=== PATIENT | male | born 1955 | race Caucasian/White ===

== ENCOUNTER 2018-12-19 09:54 | Inpatient (IN) | payer MEDICAID ==
[2018-12-19] MEDS ORDERED: Magnesium Sulfate 2 GM IV* 2 GM/50 ML BAG IVPB ONE (10:05)
[2018-12-19] MEDS ORDERED: Acetaminophen TAB* 325 MG PO ONE (10:05)
[2018-12-19] MEDS ORDERED: Albuterol/Ipratropium NEB.SOL* Albuterol 2.5 MG/Ipratropium 0.5 MG 3 ML INH ONE (10:06)
[2018-12-19] MEDS ORDERED: Cefepime(*) 2 GM in NS 0.9% 50 ML* 50 ML IVPB ONE (10:10)
[2018-12-19] MEDS ORDERED: NS 0.9% 1000 ML** 1,000 ML IV.FLUID IV ONE (10:10)
[2018-12-19] MEDS ORDERED: Levofloxacin 750 MG IVPREMIX(* 750 MG/150 ML BAG IVPB ONE (10:10)
--- NOTE | 2018-12-19 10:16 | ED ---
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 He was diagnosed through the [facility] and was told to have follow-up scans at [facility] and also to see a oncologist at [facility]. He states he does not want to drive all the way to [facility] and is nearly "on comfort care." He does state however he would like to have almost filled out at this time and does not want to be placed on comfort care quite yet. He does understand the severity of his disease. Over the past week to 2 weeks, he states he's been feeling more weak than normal, confuse, having trouble with word finding. Endorsing shortness of breath. Denies CP. Denies abdominal pain, nausea, vomiting, diarrhea, constipation. Continues to eat and drink okay. He denies any subjective fevers, but endorses sweats and chills and a minimally. Currently endorsing chills. - History of Current Complaint Chief Complaint: EDShortnessOfBreath Time Seen by Provider: 12/19/18 10:02 Hx Obtained From: Patient Onset/Duration: Sudden Onset Timing: Constant Current Severity: Moderate Associated Signs & Symptoms: Cough (Nonproductive) - Risk Factors Pulmonary Embolism: Malignancy, Smoking Pseudomonas: Negative Tuberculosis: Immune Deficiency, Smoking - Allergy/Home Medications Allergies/Adverse Reactions: Allergies Allergy/AdvReac Type Severity Reaction Status Date / Time No Known Allergies Allergy Verified 12/19/18 10:12 Home Medications: Home Medications Dexamethasone [Decadron] 4 mg PO BID 12/19/18 [History Confirmed 12/19/18] Furosemide [Lasix] 20 mg PO DAILY 12/19/18 [History Confirmed 12/19/18] levETIRAcetam [Keppra] 500 mg PO BID 12/19/18 [History Confirmed 12/19/18] PMH/Surg Hx/FS Hx/Imm Hx Previously Healthy: Yes - Immunization History Hx Pertussis Vaccination: No Immunizations Up to Date: Yes Infectious Disease History: No Infectious Disease History: Denies: Traveled Outside the [place] in Last 30 Days - Social History Occupation: Unemployed Lives: With Family Alcohol Use: None Hx Substance Use: No Substance Use Type: Reports: None Hx Tobacco Use: Yes Review of Systems Positive: Chills, Fatigue. Negative: Fever, Skin Diaphoresis Negative: Dental Pain Negative: Palpitations, Chest Pain Positive: Shortness Of Breath, Cough Negative: Abdominal Pain, Vomiting, Diarrhea, Nausea Positive: hematuria Negative: Arthralgia, Myalgia Skin: Negative Positive: Weakness Positive: Other - patient upset All Other Systems Reviewed And Are Negative: Yes Physical Exam Triage Information Reviewed: Yes Vital Signs On Initial Exam: Initial Vitals Temp Pulse Resp BP Pulse Ox 101.3 F 106 22 115/92 94 12/19/18 10:01 12/19/18 10:01 12/19/18 10:01 12/19/18 10:01 12/19/18 10:01 Vital Signs Reviewed: Yes Appearance: Positive: Ill-Appearing Skin: Positive: Skin Color Reflects Adequate Perfusion Head/Face: Positive: Normal Head/Face Inspection Eyes: Positive: EOMI, Conjunctiva Clear Neck: Positive: No Lymphadenopathy Respiratory/Lung Sounds: Positive: Clear to Auscultation, Breath Sounds Present Cardiovascular: Positive: RRR, Pulses are Symmetrical in both Upper and Lower Extremities Musculoskeletal: Positive: Strength/ROM Intact Neurological: Positive: Speech Normal Psychiatric: Positive: Affect/Mood Appropriate Diagnostics - Vital Signs Vital Signs Temp Pulse Resp BP Pulse Ox 12/19/18 10:01 101.3 F 106 22 115/92 94 - Laboratory Result Diagrams: 12/19/18 10:43 12/19/18 10:43 Lab Statement: Any lab studies that have been ordered have been reviewed, and results considered in the medical decision making process. Course/Dx - Course Course Of Treatment: During the course of treatment, the patient is evaluated for worsening shortness of breath, fatigue and difficulty with word finding and confusion after being diagnosed with stage IV renal carcinoma and brain carcinoma. Patient states he has metastases and will be on comfort care soon, however he does not want placed on comfort care at this time. Patient is requesting a most to be filled out. He is complaining of shortness of breath and chills. He is endorsing worse hematuria, however this is normal for him over the past several weeks. Labs obtained which show a 19,000 leukocytosis with a left shift. Sodium of 133, potassium 3.7. BUN/creatinine ratio is 34.8. Troponin 0.02. CRP elevated at 208. Chest x-ray shows a nodule in the right mid lung field and right upper lung field for which metastatic disease is not excluded. Left upper lobe and left basilar airspace disease suspicious for pneumonia. Patient was placed on Levaquin and cefepime. He was given 30 ML/KG fluids for septic workup. Temporal 1.3, tachycardia 106, tachypnea At 22, 94% on room air, however he drops intermittently to 89% when sleeping. 115/92. Discussed case with Dr. Reyes who agrees to admit patient at this time. - Diagnoses Differential Diagnosis/HQI/PQRI: Positive: Asthma, Bronchitis, Pneumonia, Other - metastatic disease Provider Diagnoses: Pneumonia - Physician Notifications Discussed Care of Patient With: Deejay Reyes Instructed by Provider To: Admit As Inpatient Admit/Transition Orders Completed By ED Provider: No - Critical Care Time Critical Care Time: 30-74 min Discharge - Sign-Out/Discharge Documenting (check all that apply): Patient Departure Patient Received Moderate/Deep Sedation with Procedure: No - Discharge Plan Condition: Fair Disposition: ADMITTED TO [facility] Referrals: Magdaleno Belle MD [Primary Care Provider] - - Billing Disposition and Condition Condition: FAIR Disposition: Admitted to [facility]
[2018-12-19] MEDS ORDERED: NS 0.9% 50 ML* 50 ML ONE (10:52)
[2018-12-19 10:56] LABS: ABS Basophils 0.1 10^3/ul (0-0.2); ABS Lymphocytes 0.4 10^3/ul (1.0-4.8); ABS Monocytes 0.7 10^3/ul (0-0.8); ABS Neutrophils 18.2 10^3/ul (1.5-7.7); Hematocrit 38 % (42-52); Hemoglobin 13.1 g/dL (14.0-18.0); Mean Corpuscular HGB Conc 35 g/dL (31-36); Mean Corpuscular Hemoglobin 32 pg (27-31); Mean Corpuscular Volume 93 fL (80-94); Mean Platelet Volume 7.4 fL (7.4-10.4); Platelet Count 384 10^3/uL (150-450); Red Blood Count 4.07 10^6 /uL (4.18-5.48); Red Cell Distribution Width 13 % (10.5-15); White Blood Count 19.4 10^3/uL (3.5-10.8)
[2018-12-19] MEDS ORDERED: Cefepime* 2 GM in Dextrose 50mL Q12H (Duplex) IV ONE (11:01)
[2018-12-19 11:12] LABS: Albumin 2.9 g/dL (3.2-5.2); BUN/Creatinine Ratio 34.8 (8-20); C Reactive Protein 208.62 mg/L (<8.01); Calcium 8.6 mg/dL (8.6-10.3); EGFR Non-African American 184.3 (>60); Globulin 2.9 g/dL (2-4); Potassium 3.7 mmol/L (3.5-5.0); Total Bilirubin 0.6 mg/dL (0.2-1.0); Total Protein 5.8 g/dL (6.4-8.9)
[2018-12-19 11:13] LABS: Troponin I 0.02 ng/mL (<0.04)
[2018-12-19] MEDS ORDERED: Azithromycin 500 mg/250 mL NS BAG IVPB ONE (14:00)
[2018-12-19] MEDS: Enoxaparin(*) 40 MG/0.4 ML SYR SUBCUT SCH (17:57)
[2018-12-19] MEDS: NS 0.9% w/ 20 Meq KCL 1000 ML* 1,000 ML IV SCH (17:57)
[2018-12-19] MEDS ORDERED: Azithromycin 500 mg/250 mL NS IVPB ONE (18:00)
--- NOTE | 2018-12-19 19:33 | HP ---
History of Present Illness - History of Present Illness Reason for Visit: fatigue History of Present Illness: Patient is 63 year old man who reports he was in good health until a few months ago. He lives 6 months a year in [place], 6 months near [place]. While in [place], he was diagnosed with metastatic renal cell carcinoma, with lesions in the brain and lungs. He was advised to have staging scans and oncology treatment at the [facility], but he has not completed this other than one MRI. He came to ER today because he woke up with dyspnea. He has been increasingly fatigued for about 2-3 weeks. The patient is a vague historian. He denies history of lung issues, but then endorses emphysema due to tobacco. PCP: Dr. 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 Alcohol: None Drugs: Marijuana Lives: Alone - single, no children Domestic Violence: Negative Review of Systems - Measurements Intake and Output: Intake and Output Last 24 Hours 12/17/18 12/18/18 12/19/18 12/20/18 06:59 06:59 06:59 06:59 Intake Total 1650 Balance 1650 Weight 52.163 kg Intake: IV Fluids 1290 Oral 360 - Review of Systems Constitutional Symptoms: Positive: Weight Loss Dermatology: Positive: Normal HEENT: Positive: Normal Eyes: Positive: Normal Thyroid: Positive: Normal Pulmonary: Positive: Cough, Wheezing, Shortness of Breath, Exercise Intolerance Negative: Hemoptysis, Home Oxygen Cardiology: Positive: Shortness of Breath Negative: Chest Pain Gastroenterology: Positive: Normal Genital - Urinary: Positive: Normal Negative: Hematuria Musculoskeletal: Positive: Joint Pain Endocrinology: Positive: Normal Neurology: Positive: Change in Coordination Negative: Diplopia, Hx of Seizures Psychiatry: Positive: Normal Objective Active Medications: Ambulatory Orders Dexamethasone [Decadron] 4 mg PO BID 12/19/18 Furosemide [Lasix] 20 mg PO DAILY 12/19/18 levETIRAcetam [Keppra] 500 mg PO BID 12/19/18 Vital Signs - 8 hr 12/19/18 12/19/18 12/19/18 12:43 13:00 13:13 Temperature Pulse Rate 106 93 89 Respiratory 25 25 24 Rate Blood Pressure 129/72 134/75 (mmHg) O2 Sat by Pulse 97 96 97 Oximetry 12/19/18 12/19/18 14:27 16:00 Temperature 36.5 C 36.6 C Pulse Rate 87 79 Respiratory 16 24 Rate Blood Pressure 100/65 123/62 (mmHg) O2 Sat by Pulse 95 97 Oximetry Oxygen Devices in Use Now: Nasal Cannula Appearance: alert, no distress Eyes: No Scleral Icterus Ears/Nose/Mouth/Throat: NL Teeth, Lips, Gums, - - thrush present soft palate Respiratory: Symmetrical Chest Expansion and Respiratory Effort, Clear to Percussion, - - wheezing throughout Cardiovascular: NL Sounds; No Murmurs; No JVD, RRR Abdominal: NL Sounds; No Tenderness; No Distention, No Hepatosplenomegaly Lymphatic: No Cervical Adenopathy, No Axillary Adenopathy Extremities: No Edema Skin: No Rash or Ulcers Neurological: Alert and Oriented x 3 Lines/Tubes/Other Access: Clean, Dry and Intact Peripheral IV Nutrition: Taking PO's Result Diagrams: 12/19/18 10:43 12/19/18 10:43 Additional Lab and Data: Laboratory Tests 12/19/18 12/19/18 12/19/18 10:43 10:43 10:43 Glucose 115 H Lactic Acid 0.9 AST 12 L C-Reactive Protein 208.62 H B-Natriuretic Peptide 63 Diagnostic Imaging: CXR: YAIR infiltrate, RT side nodule, other metastatic disease EKG Data: sinus tachycardia, MIO, PVCs Assess/Plan/Problems-Billing Assessment: 63 year old man with metastatic renal cell carcinoma, here with pneumonia - Patient Problems (1) Pneumonia Current Visit: Yes Status: Acute Priority: High Code(s): J18.9 - PNEUMONIA , UNSPECIFIED ORGANISM SNOMED Code(s): 141888648 Comment: -Patient will be admitted to medical service -Pneumonia treated with IV ceftriaxone, azithromycin -Will send urine for StrepPneumo and Legionella Ag -Add supplemental O2 as needed (2) COPD with exacerbation Current Visit: Yes Status: Acute Priority: High Code(s): J44.1 - CHRONIC OBSTRUCTIVE PULMONARY DISEASE W (ACUTE) EXACERBATION SNOMED Code(s): 332056025 Comment: -Main symptomology due to COPD exacerbation, due to pneumonia -Will continue decadron -Duonebs q4h ordered -Discussed connection with tobacco abuse (3) Renal cell carcinoma Current Visit: Yes Status: Acute Priority: High Code(s): C64.9 - MALIGNANT NEOPLASM OF UNSP KIDNEY, EXCEPT RENAL PELVIS SNOMED Code(s): 220570401 Comment: -Will need palliative treatment at [facility] -Patient understands there are no curative treatments to be offered -Dr. Desai contacted, will see patient in AM (4) DVT prophylaxis Current Visit: Yes Status: Acute Priority: Medium Code(s): Z29.9 - ENCOUNTER FOR PROPHYLACTIC MEASURES, UNSPECIFIED SNOMED Code(s): 279446299 Comment: -high risk -Lovenox initiated (5) Thrush, oral Current Visit: Yes Status: Acute Priority: Medium Code(s): B37.0 - CANDIDAL STOMATITIS SNOMED Code(s): 04975151 Comment: -Due to high-dose decadron -Will start nystatin swish/swallow. Status and Disposition: inpatient
[2018-12-19] MEDS: Dexamethasone TAB* 4 MG PO SCH (20:38)
[2018-12-19] MEDS: levETIRAcetam TAB* 500 MG PO SCH (20:38)
[2018-12-19 21:40] LABS: Urine Appearance Cloudy; Urine Color Red
[2018-12-19 21:42] LABS: Urine Bacteria Absent (Absent); Urine Red Blood Cell 3+(>10/hpf) (Absent); Urine White Blood Cell 3+(>20/hpf) (Absent)
[2018-12-19] MEDS: Nystatin SUSPENSION* 100000 UNITS/ML 5 ML UDC PO SCH (21:58)
[2018-12-19] MEDS: cefTRIAXone(*) 1 GM in NS 0.9% 50 ML* 50 ML IVPB SCH (21:59)
[2018-12-20] MEDS: NS 0.9% w/ 20 Meq KCL 1000 ML* 1,000 ML IV SCH ×2 (05:59→15:55)
[2018-12-20 06:52] LABS: Hematocrit 35 % (42-52); Hemoglobin 11.8 g/dL (14.0-18.0); Mean Corpuscular HGB Conc 34 g/dL (31-36); Mean Corpuscular Hemoglobin 31 pg (27-31); Mean Corpuscular Volume 93 fL (80-94); Mean Platelet Volume 7.6 fL (7.4-10.4); Platelet Count 361 10^3/uL (150-450); Red Blood Count 3.77 10^6 /uL (4.18-5.48); Red Cell Distribution Width 14 % (10.5-15); White Blood Count 19.2 10^3/uL (3.5-10.8)
[2018-12-20 07:02] LABS: BUN/Creatinine Ratio 42.5 (8-20); Calcium 8.6 mg/dL (8.6-10.3); EGFR African American 262.1 (>60); EGFR Non-African American 216.6 (>60); Potassium 4.4 mmol/L (3.5-5.0)
[2018-12-20 08:27] LABS: ABS Basophils 0.1 10^3/ul (0-0.2); ABS Lymphocytes 0.4 10^3/ul (1.0-4.8); ABS Monocytes 0.6 10^3/ul (0-0.8); ABS Neutrophils 18.1 10^3/ul (1.5-7.7); Lymphocyte % 2.3 %
[2018-12-20] MEDS: levETIRAcetam TAB* 500 MG PO SCH ×2 (08:52→20:17)
[2018-12-20] MEDS: Dexamethasone TAB* 4 MG PO SCH ×2 (08:52→20:17)
[2018-12-20] MEDS: Nystatin SUSPENSION* 100000 UNITS/ML 5 ML UDC PO SCH ×4 (08:52→20:17)
--- NOTE | 2018-12-20 09:38 | PN ---
Subjective Date of Service: 12/20/18 Interval History: Feeling okay. Gets short of breath when he lies back. A little cough with a little phlegm. No pain, no nausea, vomiting, diarrhea, constipation, fevers. Objective Active Medications: Dexamethasone (Decadron Tab*) 4 mg PO BID [facility] Last Admin: 12/20/18 08:52 Dose: 4 mg Enoxaparin Sodium (Lovenox(*)) 40 mg SUBCUT Q24H [facility] Last Admin: 12/19/18 17:57 Dose: 40 mg Azithromycin 500 mg/ Sodium (Chloride) 250 mls @ 250 mls/hr IVPB Q24H [facility] Ceftriaxone Sodium 1 gm/ (Sodium Chloride) 50 mls @ 200 mls/hr IVPB Q24H [facility] Last Admin: 12/19/18 21:59 Dose: 200 mls/hr Potassium Chloride/Sodium Chloride (Ns 0.9% W/ 20 Meq Kcl 1000 Ml*) 1,000 mls @ 100 mls/hr IV PER RATE [facility] Last Admin: 12/20/18 05:59 Dose: 100 mls/hr Levetiracetam (Keppra Tab*) 500 mg PO BID [facility] Last Admin: 12/20/18 08:52 Dose: 500 mg Nystatin (Nystatin Suspension*) 500,000 units PO QID [facility] Stop: 12/26/18 20:57 Last Admin: 12/20/18 08:52 Dose: 500,000 units Vital Signs - 8 hr 12/20/18 03:21 Temperature 98.2 F Pulse Rate 84 Respiratory 18 Rate Blood Pressure 132/71 (mmHg) O2 Sat by Pulse 97 Oximetry Oxygen Devices in Use Now: Nasal Cannula Appearance: alert, no distress, speaking in full sentences. thin. Eyes: No Scleral Icterus Ears/Nose/Mouth/Throat: NL Teeth, Lips, Gums Neck: NL Appearance and Movements; NL JVP Respiratory: - - decreased breath sounds b/l Cardiovascular: NL Sounds; No Murmurs; No JVD, RRR Abdominal: NL Sounds; No Tenderness; No Distention Lymphatic: No Cervical Adenopathy Extremities: - - right ankle pitting edema, no calf tenderness or calf swelling Skin: No Rash or Ulcers Neurological: Alert and Oriented x 3, - - oriented. memory is in tact--recites kait for me Result Diagrams: 12/20/18 06:08 12/20/18 06:08 Additional Lab and Data: Laboratory Tests 12/19/18 12/19/18 12/19/18 10:43 10:43 10:43 Glucose 115 H Lactic Acid 0.9 AST 12 L C-Reactive Protein 208.62 H B-Natriuretic Peptide 63 Microbiology and Other Data: Microbiology 12/19/18 20:40 Legionella Urinary Antigen - Final Urine Negative Legionella Antigen Streptococcus pneumoniae Ag Screen - Final Negative S. pneumo Antigen Diagnostic Imaging: CXR: YAIR infiltrate, RT side nodule, other metastatic disease EKG Data: sinus tachycardia, MIO, PVCs Assess/Plan/Problems-Billing Assessment: 63 year old man with untreated metastatic renal cell carcinoma, here with pneumonia - Patient Problems (1) Pneumonia Current Visit: Yes Status: Acute Priority: High Code(s): J18.9 - PNEUMONIA , UNSPECIFIED ORGANISM SNOMED Code(s): 033986648 Comment: community acquired Tmax 101.3 yesterday continue ceftriaxone/zithromax negative urinary antigens check sputum culture (2) COPD with exacerbation Current Visit: Yes Status: Acute Priority: High Code(s): J44.1 - CHRONIC OBSTRUCTIVE PULMONARY DISEASE W (ACUTE) EXACERBATION SNOMED Code(s): 523316976 Comment: likely provoked by pneumonia significant interstitial changes on CXR with hyperinflation already on decadron continue duonebs (3) Renal cell carcinoma Current Visit: Yes Status: Acute Priority: High Code(s): C64.9 - MALIGNANT NEOPLASM OF UNSP KIDNEY, EXCEPT RENAL PELVIS SNOMED Code(s): 276082118 Comment: with known brain and lung mets per the patient's report (diagnosed in [place]) Will need palliative treatment at [facility] Patient understands there are no curative treatments to be offered Plan for outpatient onc follow up -- has an outpatient onc appt tomorrow (4) Thrush, oral Current Visit: Yes Status: Acute Priority: Medium Code(s): B37.0 - CANDIDAL STOMATITIS SNOMED Code(s): 19899173 Comment: due to high-dose decadron continue nystatin swish/swallow. (5) DVT prophylaxis Current Visit: Yes Status: Acute Priority: Medium Code(s): Z29.9 - ENCOUNTER FOR PROPHYLACTIC MEASURES, UNSPECIFIED SNOMED Code(s): 453274253 Comment: Lovenox initiated Status and Disposition: inpatient
[2018-12-20] MEDS: Enoxaparin(*) 40 MG/0.4 ML SYR SUBCUT SCH (13:33)
[2018-12-20] MEDS ORDERED: Artificial Tears* 15 ML BTL BOTH EYES PRN (16:57)
[2018-12-20] MEDS ORDERED: Azithromycin IV(*) 500 MG in NS 0.9% 250 ML* 250 ML IVPB SCH (18:00)
[2018-12-20] MEDS: cefTRIAXone(*) 1 GM in NS 0.9% 50 ML* 50 ML IVPB SCH (20:15)
[2018-12-21] MEDS: NS 0.9% w/ 20 Meq KCL 1000 ML* 1,000 ML IV SCH (00:05)
[2018-12-21] MEDS: levETIRAcetam TAB* 500 MG PO SCH (08:58)
[2018-12-21] MEDS: Nystatin SUSPENSION* 100000 UNITS/ML 5 ML UDC PO SCH ×3 (08:58→17:21)
[2018-12-21] MEDS: Dexamethasone TAB* 4 MG PO SCH (08:58)
[2018-12-21] MEDS ORDERED: Nicotine PATCH 14 MG/24 HR* PATCH TRANSDERM SCH (09:00)
[2018-12-21 11:42] VITALS: BP 126/64
[2018-12-21] MEDS: Enoxaparin(*) 40 MG/0.4 ML SYR SUBCUT SCH (14:46)
[2018-12-21] MEDS ORDERED: Levofloxacin TAB* 500 MG PO ONE (17:05)
--- NOTE | 2018-12-21 20:35 | DS ---
CC: Dr. Belle, [place]* DISCHARGE SUMMARY: DATE OF ADMISSION: 12/19/18 DATE OF DISCHARGE: 12/21/18 PRINCIPAL DISCHARGE DIAGNOSES: 1. Community-acquired pneumonia. 2. Chronic obstructive pulmonary disease exacerbation. 3. Acute hypoxic respiratory failure. 4. Metastatic renal cell carcinoma. PHYSICAL EXAMINATION: At the time of discharge, temperature 98.4, heart rate 86 , respiratory rate 16, pulse ox 97% on room air, blood pressure 126/64. General : Alert, well-appearing thin man, in no acute distress. He is speaking in full sentences. HEENT: Pupils equal, round, and reactive to light. Oral mucosa is moist. Neck: No JVP. No cervical adenopathy. Chest: He is in a regular rate and rhythm with no murmurs. His lungs are clear bilaterally. Abdomen: Soft, nontender, nondistended. No guarding or rebound. No CVA tenderness. He has a biopsy site over the right kidney that looks clean and dry. Extremities: He has pitting edema in his right ankle only. No edema in the shins. Neurologic: He is oriented x3. His memory is intact. His cognition is appropriate. He follows all commands. His strength is 5/5 in all extremities. MEDICATIONS AT DISCHARGE: 1. Keppra 500 mg b.i.d. 2. Lasix 20 mg daily. 3. Decadron 4 mg b.i.d. 4. Levofloxacin 500 mg daily for 5 more days. HOSPITAL COURSE BY PROBLEM: 1. Community-acquired pneumonia. Mr. Chairez presented with shortness of breath and was found to have infiltrates on his chest x-ray. He was treated with ceftriaxone and azithromycin and his breathing improved quickly. His urine antigens were negative. A sputum culture is pending at the time of discharge. This should be followed up as an outpatient. 2. COPD exacerbation. He was continued on his usual dose of Decadron and started on DuoNeb and his breathing improved. He walked with his nurse and physical therapy on 12/21/18 and did not meet requirements for ambulatory oxygen and he felt very good when he walked despite tachycardia and tachypnea. Based on his wishes as detailed below, this was deemed acceptable for discharge to home. 3. Metastatic renal cell carcinoma. Mr. Chairez was first diagnosed with this in July of 2018 in [place]. He declined treatment at that time and moved back to [place] where all of his family is. He has not pursued any treatment and after several conversations with [facility], he was very clear in his wishes of wanting to pursue palliative therapy. He explained under no circumstances will he ever want chemotherapy or radiation and was very cognizant and specific and reasonable in his request. Based on these wishes, we referred him to the [facility] program. He currently has no symptoms that need to be managed, but I think that the PATH program is appropriate for him until his symptoms progress, at which point he may be appropriate for a hospice referral. [facility] and I have given him my office number and he can call and set up an appointment with us within the next week. I will be happy to sign any PATH or hospice orders as needed. TIME SPENT: Sixty minutes was spent on this discharge. [id number]/CPS #: [id number] SUSAN
[2018-12-21] MEDS ORDERED: Nicotine Patch Removal NOTE PATCH OFF SCH (21:00)
== END 2018-12-21 18:45 | disposition home health service (06) | DRG 139 ==
LOC: ED 09:54 → MED 13:09
PROVIDERS: ADMIT Internal Medicine; ATTEND Internal Medicine
DX: J18.9 Pneumonia, unspecified organism (principal); J96.01 Acute respiratory failure with hypoxia; J44.1 Chronic obstructive pulmonary disease with (acute) exacerbation; J44.0 Chronic obstructive pulmonary disease with (acute) lower respiratory infection; C64.9 Malignant neoplasm of unspecified kidney, except renal pelvis; C79.31 Secondary malignant neoplasm of brain; B37.0 Candidal stomatitis; C79.9 Secondary malignant neoplasm of unspecified site; Z68.1 Body mass index [BMI] 19.9 or less, adult; R91.8 Other nonspecific abnormal finding of lung field; F17.210 Nicotine dependence, cigarettes, uncomplicated; R63.4 Abnormal weight loss
CPT/HCPCS: 36415; 71045; 80048; 80053; 81003; 83605; 83880; 84484; 85025; 86140; 87040; 87070; 87077; 87086; 87186; 87205; 87899; 93005; 99284; A9270-GY; J0456; J0692; J0696; J1650; J3475; J8540

== ENCOUNTER 2018-12-25 11:03 | Inpatient (IN) | payer MEDICAID ==
--- NOTE | 2018-12-25 12:08 | ED ---
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 Patient was seen at [facility] on 12/19/18 for PNA and released on 12/21/18. Associated sx: SOB, productive cough, recent weight gain, weakness. Denies any fever, chills, erythema of eyes, sore throat, CP, abdominal pain, N/V, dysuria, hematuria, myalgia, rash, or dizziness. He is not taking Prednisone. He does not sleep using pillows. He is not on home O2. Ambulates with a walker. Patient had a recent dx: renal CA mets to brain at end of September, he was being treated at [facility] in [place] and [place]. He sees Dr. Belle, PCP here, but in [place] he saw whatever provider was available. Patient feels he's "adrift at sea." He is set-up tomorrow to go on palliative care. He has an upcoming appointment to see Dr. Desai, oncology. - History of Current Complaint Chief Complaint: EDShortnessOfBreath Time Seen by Provider: 12/25/18 11:34 Hx Obtained From: Patient, Family/Mining Detail Draftsperson - sister present, Medical Records Onset/Duration: Gradual Onset, Still Present Timing: Constant Dyspnea At: Exertion Associated Signs & Symptoms: Cough (Productive), Edema - bilat LE - Allergy/Home Medications Allergies/Adverse Reactions: Allergies Allergy/AdvReac Type Severity Reaction Status Date / Time No Known Allergies Allergy Verified 12/25/18 11:33 PMH/Surg Hx/FS Hx/Imm Hx Previously Healthy: No - renal CA mets brain Sensory History: Reports: Hx Contacts or Glasses Denies: Hx Hearing Aid Opthamlomology History: Reports: Hx Contacts or Glasses Neurological History: Denies: Hx Seizures Infectious Disease History: No Infectious Disease History: Denies: Traveled Outside the US in Last 30 Days - Family History Family History: 4 siblings - [place] - Social History Occupation: Unemployed Lives: With Family - father Alcohol Use: None Hx Substance Use: No Substance Use Type: Reports: None Hx Tobacco Use: Yes Smoking Status (MU): Heavy Every Day Tobacco Smoker Type: Cigarettes Review of Systems Positive: Other - pos: recent weight gain. Negative: Fever, Chills Negative: Erythema Negative: Sore Throat Negative: Chest Pain Positive: Shortness Of Breath, Cough Negative: Abdominal Pain, Vomiting, Nausea Negative: dysuria, hematuria Positive: Edema - bilat LE. Negative: Myalgia Negative: Rash Neurological: Other - neg: dizziness Positive: Weakness All Other Systems Reviewed And Are Negative: Yes Physical Exam - Summary Physical Exam Summary: Constitutional: Well-developed, Cachetic, Alert. (-) Distressed Skin: Warm, Dry HENT: Normocephalic; Atraumatic Eyes: Conjunctiva normal Neck: Musculoskeletal ROM normal neck. (-) JVD, (-) Stridor, (-) Tracheal deviation Cardio: Rhythm regular, rate normal, Heart sounds normal; Intact distal pulses; The pedal pulses are 2+ and symmetric. Radial pulses are 2+ and symmetric. (-) Murmur Pulmonary/Chest wall: Diminished breath sounds, Rhonchi, (-) Rales Abd: Soft, (-) epigastric tenderness, (-) Distension, (-) Guarding, (-) Rebound Musculoskeletal: 2+ pitting edema below ankles Lymph: (-) Cervical adenopathy Neuro: Alert, Oriented x3 Psych: Mood and affect Normal Triage Information Reviewed: Yes Vital Signs On Initial Exam: Initial Vitals Temp Pulse Resp BP Pulse Ox 99.4 F 104 20 120/82 97 12/25/18 11:26 12/25/18 11:26 12/25/18 11:26 12/25/18 11:26 12/25/18 11:26 Vital Signs Reviewed: Yes Diagnostics - Vital Signs Vital Signs Temp Pulse Resp BP Pulse Ox 12/25/18 11:26 99.4 F 104 20 120/82 97 - Laboratory Result Diagrams: 12/25/18 12:00 12/25/18 12:01 Lab Statement: Any lab studies that have been ordered have been reviewed, and results considered in the medical decision making process. - Radiology CXR Radiology Interpretation Completed By: Radiologist Summary of Radiographic Findings: IMPRESSION: 1. LARGE CAVITARY LESION IN THE LEFT UPPER LOBE CONSISTENT WITH A NEOPLASTIC OR INFECTIOUS PROCESS. 2. MULTIPLE PULMONARY NODULES SUSPICIOUS FOR METASTATIC DISEASE, UNCHANGED. 3. INTERVAL RESOLUTION OF THE PREVIOUSLY NOTED LEFT LUNG INFILTRATE. ED provider has reviewed this report. - EKG 1149 Cardiac Rate: NL - 91 bpm EKG Rhythm: Sinus Rhythm Summary of EKG Findings: EKG at 1149 shows NSR at 91 bpm. No STEMI. Re-Evaluation - Re-Evaluation 1 Re-Evaluation Time: 16:15 Change: Unchanged Comment: Discussing results with patient. 2 Re-Evaluation Time: 16:28 Change: Unchanged Comment: Patient requesting oncology see him in hospital, as well as requesting food tray. Course/Dx - Course Course Of Treatment: Patient is a 63 y/o M with renal CA mets brain presenting with bilateral pedal edema, productive cough, SOB, weakness. Patient was seen at [facility] on 12/19/18 for PNA and released on 12/21/18. EKG at 1149 shows NSR at 91 bpm. No STEMI. CXR shows "1. LARGE CAVITARY LESION IN THE LEFT UPPER LOBE CONSISTENT WITH A NEOPLASTIC OR INFECTIOUS PROCESS. 2. MULTIPLE PULMONARY NODULES SUSPICIOUS FOR METASTATIC DISEASE, UNCHANGED. 3. INTERVAL RESOLUTION OF THE PREVIOUSLY NOTED LEFT LUNG INFILTRATE.". Lab work shows: WBC: 17.6, RBC: 3.77, Hgb: 11.7, Hct: 35, chloride is low, creatinine: 0.44, BUN/C ratio: 40.9, glucose: 139, total protein: 5.8, albumin: 2.9. Patient given breathing treatment in ED. On re-eval, patient desat to 88% with ambulation. He continues to have WBC: 17, considering admission for hypoxemia and PNA. Consulted with Dr. Robert, hospitalist, who will admit patient. - Diagnoses Provider Diagnoses: Community acquired pneumonia, Hypoxemia - Physician Notifications Discussed Care of Patient With: Ramandeep Robert - hospitalist Time Discussed With Above Provider: 16:25 Instructed by Provider To: Admit As Inpatient - Critical Care Time Critical Care Time: 30-74 min - 35 mins Discharge - Sign-Out/Discharge Documenting (check all that apply): Patient Departure - ADMIT Patient Received Moderate/Deep Sedation with Procedure: No - Discharge Plan Disposition: ADMITTED TO [facility] Referrals: [facility] [Outside] Additional Instructions: Elevate your feet whenever possible on pillows. Wear compression knee stockings. Return to the emergency department for changing or worsening symptoms. - Attestation Statements Document Initiated by Scribe: Yes Documenting Scribe: LinnoYernieg Lucho Provider For Whom Scribe is Documenting (Include Credential): Dr. Daniel Salazar MD Scribe Attestation: I, SooYoung VanDeMark, scribed for Dr. Daniel Salazar MD on 12/25/18 at 1634. Status of Scribe Document: Ready
[2018-12-25 12:50] LABS: Hematocrit 35 % (42-52); Hemoglobin 11.7 g/dL (14.0-18.0); Mean Corpuscular HGB Conc 34 g/dL (31-36); Mean Corpuscular Hemoglobin 31 pg (27-31); Mean Corpuscular Volume 92 fL (80-94); Platelet Count 431 10^3/uL (150-450); Red Blood Count 3.77 10^6 /uL (4.18-5.48); Red Cell Distribution Width 14 % (10.5-15); White Blood Count 17.6 10^3/uL (3.5-10.8)
[2018-12-25 12:53] LABS: ABS Lymphocytes 0.5 10^3/ul (1.0-4.8); ABS Monocytes 0.7 10^3/ul (0-0.8); ABS Neutrophils 16.4 10^3/ul (1.5-7.7); Eosinophil % 0.1 %; Lymphocyte % 3.1 %
[2018-12-25] MEDS ORDERED: Albuterol/Ipratropium NEB.SOL* Albuterol 2.5 MG/Ipratropium 0.5 MG 3 ML INH ONE ×2 (12:57→16:24)
[2018-12-25 13:06] LABS: Troponin I 0.01 ng/mL (<0.04)
[2018-12-25 13:10] LABS: Albumin 2.9 g/dL (3.2-5.2); BUN/Creatinine Ratio 40.9 (8-20); Calcium 8.5 mg/dL (8.6-10.3); EGFR African American 234.8 (>60); Globulin 2.9 g/dL (2-4); Potassium 3.8 mmol/L (3.5-5.0); Total Bilirubin 0.3 mg/dL (0.2-1.0); Total Protein 5.8 g/dL (6.4-8.9)
[2018-12-25] MEDS ORDERED: Cefepime 2 GM in Dextrose(*) 2 GM/50 ML BAG IV ONE (16:16)
[2018-12-25] MEDS ORDERED: Ciprofloxacin 400MG IVPREMIX(* 400 MG/200 ML BAG IVPB ONE (16:16)
[2018-12-25] MEDS ORDERED: methylPREDNISolone 125 MG* 2 ML VIAL IV ONE (16:24)
[2018-12-25] MEDS ORDERED: Acetaminophen TAB* 325 MG PO PRN (17:44)
[2018-12-25] MEDS ORDERED: Piperacillin/Tazobac ADVAN(*) 3.375 GM in NS 0.9% 100 ML* 100 ML IVPB ONE (17:50)
[2018-12-25] MEDS ORDERED: Zosyn per Pharmacy* NOTE FOLLOW UP SCH (18:00)
--- NOTE | 2018-12-25 19:55 | HP ---
CC: Dr. Belle * HISTORY AND PHYSICAL: DATE OF ADMISSION: 12/25/18 PROVIDER: Fausto Song NP PRIMARY CARE PROVIDER: Dr. Belle. ATTENDING PHYSICIAN WHILE IN THE HOSPITAL: Dr. Ramandeep Robert * (dictated by Fausto Song NP). CHIEF COMPLAINT: Shortness of breath. HISTORY OF PRESENT ILLNESS: Mr. 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 He reports that he lives 6 months in [place] and 6 months in [place]. He reports that he was diagnosed in September with metastatic renal cell carcinoma and was advised to return home. The patient reports that he returned home and was following with [place]cology at the [place], but has not had any MRI or staging exams. The patient was recently admitted at [facility] for community-acquired pneumonia on 12/19/18 to . The patient reports that over the weekend he became more short of breath. He reports that he has more of a productive cough and continues to have fevers. Due to these findings, he presented to the emergency room for further evaluation. The patient also reports that he is becoming progressively more weak and is unsteady on his feet and is having trouble walking. The patient reports that he is supposed to have initial appointment with Dr. Stahl tomorrow at 11:20. While in the emergency room, the patient had routine lab work drawn and a chest x- ray. He was shown to have leukocytosis with a white count of 17,000. He did have a fever of 101 on arrival to the emergency room. Due to these findings , we were asked to see and evaluate the patient for admission. PAST MEDICAL HISTORY: Renal cell carcinoma with metastatic disease to the brain. PAST SURGICAL HISTORY: Hernia repair. HOME MEDICATIONS: Include: 1. Decadron 4 mg p.o. b.i.d. 2. Keppra 500 mg p.o. b.i.d. 3. Levaquin 500 mg p.o. daily. 4. Lasix 20 mg p.o. daily. FAMILY HISTORY: Mother had a history of atrial fibrillation and in her late 80s. Father is alive and has a pacemaker. No reported history of diabetes or cancer within the family. SOCIAL HISTORY: The patient reports that he smokes a third of pack per day. He quit drinking alcohol in 1994. He does report daily marijuana use. He is single. He has never been . He has no children. He lives alone. Surrogate decision makers in the event he is unable to make his own decisions are his sister and brother. He is a DNR/DNI. A MOLST form has been completed and placed on the chart. REVIEW OF SYSTEMS: He denies fever or chills, unintended weight loss. Denies any chest pain or edema. He does report productive cough that is moist. He does report progressively worsening shortness of breath. Denies any hemoptysis. No nausea, vomiting, diarrhea, or abdominal pain. He does report gross hematuria since July. Denies any dysuria, urinary frequency, urgency, or pain with urination. Denies any focal weakness or sensory loss, visual complaints, dysphagia, arthralgias, myalgias, rashes, lesions or open sores. Denies any psychosis or anxiety. PHYSICAL EXAMINATION GENERAL: Mr. Chairez is a 63-year-old male. He is alert and oriented, resting on the stretcher in the emergency room. He is in mild respiratory distress. VITAL SIGNS: Blood pressure 121/73, heart rate 93, respirations were 26, O2 saturation 93%, temperature was 99.4. HEENT: Head is atraumatic, normocephalic. Eyes: EOMs are intact. Sclerae anicteric and not pale. Oral mucosa appeared to be moist. NECK: Supple. LUNGS: Diminished with scattered rhonchi bilaterally. CARDIAC: S1, S2. Regular rate and rhythm. No murmurs, rubs, or gallops. ABDOMEN: Soft and nontender. Bowel sounds are present x4. MUSCULOSKELETAL: He is able to move all 4 extremities. He does have +2 pitting edema noted to the ankles and feet. Pedal pulses are +2 bilaterally. NEUROLOGIC: He is awake, alert, oriented x3. Speech is clear. Thought process is intact. There are no gross focal deficits. SKIN: Intact. DIAGNOSTIC STUDIES/LAB DATA: WBCs are 17.6, RBCs 3.77, hemoglobin 11.7, hematocrit is 35, platelet count was 431. Sodium 135, potassium 3.8, chloride 97, carbon dioxide was 31, anion gap was 7, BUN was 18, creatinine 0.44, glucose was 139, lactic acid 1.0, calcium 8.5. ASTs were 15, ALTs were 52, alkaline phosphatase was 63. Troponin is 0.01, BNP is 44. He did have a sputum culture on 12/21/18, which grew Achromobacter xylosoxidans, which has multiresistant bacteria and is only susceptible to meropenem, Zosyn, and Bactrim. Chest x-ray, radiologist's impression: Large cavitary lesion in the left upper lobe consistent with a neoplastic or infectious process, multiple pulmonary nodules suspicious for metastatic disease unchanged, interval resolution of previously noted left lung infiltrate. He had an electrocardiogram, which showed sinus rhythm at a rate of 91. He does have some P-wave inversions in aVL, which are consistent with previous EKGs. ASSESSMENT AND PLAN: Mr. Chairez is a 63-year-old male, who was recently admitted for community-acquired pneumonia from 12/19/18 to 12/21/18. He was placed on Levaquin and discharged home. He will be admitted under observation for: 1. Shortness of breath. I suspect this is related to his continued community- acquired pneumonia. I will place him on Zosyn as he did have a sputum culture come back positive for Achromobacter xylosoxidans, which is multiresistant bacteria and is susceptible to Zosyn and was only intermediate to Levaquin, which was an antibiotic he was placed on at discharge. I will continue with Zosyn. I am going to get a CTA of the chest as the patient does have a cavitary lesion in the left upper lung to evaluate that further. He has known metastatic disease to the brain and multiple nodules in the lungs. 2. Renal cell carcinoma with metastatic disease to the brain - the patient reports that he wants to remain comfortable. He reports he does not want any extraordinary measures taken. He would like to discuss his case with an oncologist to discuss his prognosis. He did have an appointment with Dr. Stahl tomorrow at 11:20. We could consider a consultation to Oncology to review his case. The patient is in no acute pain at this time. I will continue with supportive care for his pneumonia and oxygen support as needed to keep him comfortable. Should he develop pain or worsening of his symptoms, we will give him pain medications as needed. 3. FEN: He can have a regular diet. 4. Code status: He is a DNR/DNI. 5. DVT prophylaxis: I will place him on heparin subcu. TIME SPENT: Time spent on this admission was approximately 60 minutes, greater than half that time was spent at the bedside reviewing events leading thus far to his hospitalization, performing my physical exam, and reviewing my plan of care. I have discussed this with my attending, Dr. Ramandeep Robert; she is in agreement with my plan. FAUSTO SONG, VOLUNTEER MANAGER [id number]/CPS #: [id number] SUSAN
[2018-12-25] MEDS ORDERED: Dexamethasone TAB* 4 MG PO SCH (21:00)
[2018-12-25] MEDS: Heparin VIAL(*) 5000 UNITS/ML VIAL (FIVE THOUSAND) SUBCUT SCH (23:31)
[2018-12-25] MEDS: levETIRAcetam TAB* 500 MG PO SCH (23:31)
[2018-12-25] MEDS: ZOSYN 3.375 GM Q8H per EXTENDED INFUSION IVPB SCH ×2 (23:31)
[2018-12-26 06:07] LABS: Hematocrit 32 % (42-52); Hemoglobin 10.9 g/dL (14.0-18.0); Mean Corpuscular HGB Conc 34 g/dL (31-36); Mean Corpuscular Hemoglobin 31 pg (27-31); Mean Corpuscular Volume 92 fL (80-94); Mean Platelet Volume 7.1 fL (7.4-10.4); Platelet Count 426 10^3/uL (150-450); Red Cell Distribution Width 14 % (10.5-15); White Blood Count 16.7 10^3/uL (3.5-10.8)
[2018-12-26] MEDS: ZOSYN 3.375 GM Q8H per EXTENDED INFUSION IVPB SCH ×6 (06:10→21:06)
[2018-12-26 06:26] LABS: BUN/Creatinine Ratio 44.9 (8-20); Calcium 9.2 mg/dL (8.6-10.3); EGFR African American 207.3 (>60); EGFR Non-African American 171.4 (>60)
[2018-12-26 07:08] LABS: Urine Appearance Cloudy; Urine Bacteria Absent (Absent); Urine Bilirubin Negative (Negative); Urine Blood 3+ (Negative); Urine Color Yellow; Urine Glucose Negative (Negative); Urine Ketones Negative (Negative); Urine Nitrite Negative (Negative); Urine Protein Negative (Negative); Urine Red Blood Cell 3+(>10/hpf) (Absent); Urine Urobilinogen Negative (Negative); Urine White Blood Cell Trace(0-5/hpf) (Absent)
[2018-12-26 08:17] LABS: ABS Lymphocytes 0.7 10^3/ul (1.0-4.8); ABS Monocytes 0.7 10^3/ul (0-0.8); ABS Neutrophils 15.3 10^3/ul (1.5-7.7); Lymphocyte % 4.3 %; Nucleated Red Blood Cells % 0.1
[2018-12-26] MEDS: levETIRAcetam TAB* 500 MG PO SCH ×2 (09:12→21:06)
[2018-12-26] MEDS: Dexamethasone TAB* 4 MG PO SCH ×2 (09:12→21:06)
[2018-12-26] MEDS: Heparin VIAL(*) 5000 UNITS/ML VIAL (FIVE THOUSAND) SUBCUT SCH (09:12)
[2018-12-26] MEDS: Albuterol/Ipratropium NEB.SOL* Albuterol 2.5 MG/Ipratropium 0.5 MG 3 ML INH PRN ×3 (09:35→22:13)
--- NOTE | 2018-12-26 13:35 | PN ---
Subjective Date of Service: 12/26/18 Interval History: HOSPITALIST PROGRESS NOTE Patient seen and examined at bedside. Care reviewed and d/w Kelsey Vivas RN. He's breathing is unchanged. His major complaint is frustration with his care overall "How difficult is it to get my records from [place]? How many forms do I have to sign?". Family History: Unchanged from Admission Social History: Unchanged from Admission Past Medical History: Unchanged from Admission Objective Active Medications: Acetaminophen (Tylenol Tab*) 650 mg PO Q4H PRN PRN Reason: FEVER/PAIN Albuterol/Ipratropium (Duoneb (Albuterol 2.5 Mg/Ipratropium 0.5 Mg)) 1 neb INH [id number] AWAKE PRN PRN Reason: sob/wheexing Last Admin: 12/26/18 13:18 Dose: 1 neb Dexamethasone (Decadron Tab*) 4 mg PO BID [facility] Last Admin: 12/26/18 09:12 Dose: 4 mg Heparin Sodium (Porcine) (Heparin Vial(*)) 5,000 units SUBCUT Q12HR [facility] Last Admin: 12/26/18 09:12 Dose: 5,000 units Piperacillin Sod/Tazobactam (Sod 3.375 gm/ Sodium Chloride) 100 mls @ 25 mls/ hr IVPB Q8H [facility] Last Admin: 12/26/18 06:10 Dose: 25 mls/hr Levetiracetam (Keppra Tab*) 500 mg PO BID [facility] Last Admin: 12/26/18 09:12 Dose: 500 mg Pharmacy Consult (Zosyn Per Pharmacy*) 1 note FOLLOW UP .ZOSYN PER PHARMACY [facility] Vital Signs - 8 hr 12/26/18 12/26/18 12/26/18 07:15 09:37 11:15 Temperature 97.6 F 97.4 F Pulse Rate 83 94 95 Respiratory 16 16 20 Rate Blood Pressure 131/51 136/60 (mmHg) O2 Sat by Pulse 92 98 88 Oximetry Oxygen Devices in Use Now: None Appearance: Thin gentleman sitting up in bed in NAD Eyes: No Scleral Icterus Ears/Nose/Mouth/Throat: Mucous Membranes Moist Neck: Trachea Midline Respiratory: Symmetrical Chest Expansion and Respiratory Effort, - - BS+ bilaterally with bilateral rhochi Cardiovascular: RRR - Normal S1 and S2 Neurological: Alert and Oriented x 3, NL Muscle Strength and Tone Result Diagrams: 12/26/18 05:45 12/26/18 05:45 Microbiology and Other Data: Microbiology 12/25/18 12:00 Aerobic Blood Culture - Preliminary Blood Venous No Growth Day 1 Anaerobic Blood Culture - Preliminary No Growth Day 1 12/26/18 06:18 Legionella Urinary Antigen - Final Urine Negative Legionella Antigen Streptococcus pneumoniae Ag Screen - Final Negative S. pneumo Antigen Assess/Plan/Problems-Billing Assessment: Mr Chairez is a 63yo M with PMH of metastatic renal cell CA (brain/lungs - recently diagnosed in [place]), recent admission for pneumonia, who presented to ED with c/o weakness and worsening shortness of breath. - Patient Problems (1) Cavitary lesion of lung Comment: - CT chest shows large YAIR cavitary lesion. - Sputum culture grew Achromobacter sensitive to Zosyn. - ID consult requested. (2) Renal cell carcinoma Comment: - With known brain and lung mets. - Awaiting further records from [place]. - Oncology (Dr Desai) consult requested. - Continue Keppra, Dexamethasone, and symptomatic treatment. (3) DVT prophylaxis Comment: - SCDs. (4) DNR (do not resuscitate) Status and Disposition: Inpatient.
--- NOTE | 2018-12-26 14:44 | CONS ---
CONSULTATION REPORT: DATE OF CONSULT: 12/26/18 REQUESTING PHYSICIAN: Dr. Oneal. CONSULTING SERVICE: Infectious Disease. REASON FOR CONSULT: Pneumonia. IMPRESSION: Admission in November for presumed community-acquired pneumonia with a left upper lobe infiltrate on chest x-ray, improved a bit on bronchodilators, corticosteroids. This in the setting of metastatic disease in the kidney and suspected central nervous system disease with a lung primary. He has not had the pulmonary abnormalities biopsied in the past. He is back now a couple days after being home with worsening dyspnea and low energy. He had a CT here that shows a large cavitary lesion in the left upper lobe. Given his extensive time in [place], endemic fungal infections like coccidioides are a consideration and can mimic lung metastasis or primary tumors. He does also have bilateral peripheral lung nodules with negative blood cultures. Septic emboli are unlikely. So this could be metastatic disease or less likely if infectious, I think endemic fungi are at the top of the list. RECOMMENDATIONS: He is on Zosyn now for possibility of pneumonia, lung abscess. He grew achromobacter in his last sputum culture, which I do not think is a pathogen here, but a colonizer of abnormal airways. We discussed biopsy of the lung mass, which he would be willing to undergo in order to see if there is another diagnosis that explains his respiratory symptoms. He is not otherwise planning any treatment for his metastatic renal cell cancer. I will add a coccidioides antibody. HISTORY OF PRESENT ILLNESS: This is a 63-year-old man who spends part of the year in [place] and part of the time here who, in July of 2018, was diagnosed with lung cancer by biopsy of renal mass. He was found at that time to have pulmonary nodules and central nervous system involvement, none of those areas were biopsied. He declined chemotherapy or radiation and is followed up with the [facility] here and in [place]. He still does not plan treatment for his renal cell carcinoma. He was admitted here end of last week with worsening dyspnea and cough. A chest x-ray showed a left upper lobe infiltrate. He was treated with ceftriaxone and azithromycin as well as additional bronchodilators and maintenance of his corticosteroid treatment. He apparently by the report of his discharge summary was getting better. He in retrospect says he is not sure if his breathing was improved. He had been becoming more and more short of breath at home and had less energy and more difficulty getting around, so he came back to the hospital. His sputum culture since discharge has since come back growing Achromobacter. He was given a dose of cefepime here and now is on Zosyn. He has been afebrile, saturating mid 90s on room air. Chest x-ray showed persistence of the left upper lobe abnormality and so he had the CT scan with the results described as above. Today, he has ongoing cough, which is nonproductive, which is frustrating to him. He has not had hemoptysis. He does feel short of breath at rest. He has no chest pain. No fever, chills, drenching sweats. His appetite is decreased. PAST MEDICAL HISTORY: Renal cell cancer with metastatic disease. ALLERGIES: No known drug allergies. MEDICATIONS: 1. Tylenol. 2. Albuterol/ipratropium inhaler. 3. Dexamethasone 4 mg by mouth twice daily. 4. Heparin subcutaneous injection. 5. Keppra. 6. Zosyn 3.375 g IV every 8 hours by extended infusion. 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 He had been in the in the 1970s. He has no known TB contacts. REVIEW OF SYSTEMS: All negative to a 14-point review except as noted above in the history of present illness. PHYSICAL EXAM: Vital Signs: Temperature is 36.3, heart rate 95, respiratory rate 20, blood pressure 136/60, oxygen saturation 88% on room air. In general, he is awake, not in distress. Neurologic: He is oriented x3. Follows all commands. Moves all his extremities. HEENT: There is no conjunctival hemorrhage. Oropharynx without lesions. Neck is supple without mass. Heart is regular rate and rhythm without murmurs, rubs, or gallops. Lungs: Distant breath sounds bilaterally without wheeze or rales. Abdomen: Soft, nontender, nondistended. There are bowel sounds present. Skin: There is no rash or splinter hemorrhage. Musculoskeletal: There is no spine tenderness to palpation or joint synovitis. LABORATORY DATA: White blood cell count 16.7 down from 17.6 yesterday, hemoglobin is 10.9, platelets 426. Creatinine is 4.9. ALT 52. CRP 208. Please see impression and recommendations outlined above. Thanks for asking me to see Mr. Chairez in consultation. [id number]/CPS #: [id number] SUSAN
--- NOTE | 2018-12-26 16:35 | CONSULT ---
Palliative / Hospice Consult Ordering Provider: Cailin Melgar Referal Reason: Information on hospice - Subjective Code Status: DNR Advance Directives Location: In Chart MOLST Part A Completed: Yes - on chart MOLST Part E Completed:: Yes - on chart - History or Present Illness History or Present Illness: 63 yo male who [place] [facility] [place] presents to ER with SOB. PMH is significant for cancer in his kidney, brain and L lung and COPD. Studies show CXR-YAIR large cavity & multiple nodules, ekg-PVC, Brain CT-R temporal lobe cyst like structure, H/H 10.9/35, BUN/Cr 7/.49, egfr 171.4, tprot 5.8 & alb 2.9. 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 He was diagnosed with cancer several months ago in [place] at that time he decided to move back to [place] to be closer to family. Otherwise no complaints. All history is from the pt and medical records. Lab Values: Abnormal Lab Results 12/26/18 12/26/18 12/26/18 05:45 05:45 06:18 WBC 16.7 H RBC 3.50 L Hgb 10.9 L Hct 32 L MCV 92 MCH 31 MCHC 34 RDW 14 Plt Count 426 MPV 7.1 L Neut % (Auto) 91.4 Lymph % (Auto) 4.3 Storey % (Auto) 4.2 Eos % (Auto) 0.0 Baso % (Auto) 0.1 Absolute Neuts (auto) 15.3 H Absolute Lymphs (auto) 0.7 L Absolute Monos (auto) 0.7 Absolute Eos (auto) 0.0 Absolute Basos (auto) 0.0 Absolute Nucleated RBC 0.0 Immature Gran % 9.0 Neutrophils % 84.0 Band Neutrophils % 2.0 Lymphocytes % 2.0 Monocytes % 3.0 Metamyelocytes % 2.0 Myelocytes % 5.0 H Nucleated RBC % 0.1 Normal RBC Morphology Normal Sodium 136 Potassium 4.0 Chloride 100 L Carbon Dioxide 29 Anion Gap 7 BUN 22 Creatinine 0.49 L Est GFR ( Amer) 207.3 Est GFR (Non-Af Amer) 171.4 BUN/Creatinine Ratio 44.9 H Glucose 105 H Calcium 9.2 Urine Color Yellow Urine Appearance Cloudy Urine pH 7.0 Ur Specific [place] 1.020 Urine Protein Negative Urine Ketones Negative Urine Blood 3+ A Urine Nitrate Negative Urine Bilirubin Negative Urine Urobilinogen Negative Ur Leukocyte Esterase Negative Urine WBC (Auto) Trace(0-5/hpf) Urine RBC (Auto) 3+(>10/hpf) A Amorphous Crystals Present A Urine Bacteria Absent Urine Glucose Negative Laboratory Last Values WBC 16.7 10^3/uL (3.5-10.8) H 12/26/18 05:45 RBC 3.50 10^6 /uL (4.18-5.48) L 12/26/18 05:45 Hgb 10.9 g/dL (14.0-18.0) L 12/26/18 05:45 Hct 32 % (42-52) L 12/26/18 05:45 MCV 92 fL (80-94) 12/26/18 05:45 MCH 31 pg (27-31) 12/26/18 05:45 MCHC 34 g/dL (31-36) 12/26/18 05:45 RDW 14 % (10.5-15) 12/26/18 05:45 Plt Count 426 10^3/uL (150-450) 12/26/18 05:45 MPV 7.1 fL (7.4-10.4) L 12/26/18 05:45 Neut % (Auto) 91.4 % 12/26/18 05:45 Lymph % (Auto) 4.3 % 12/26/18 05:45 Storey % (Auto) 4.2 % 12/26/18 05:45 Eos % (Auto) 0.0 % 12/26/18 05:45 Baso % (Auto) 0.1 % 12/26/18 05:45 Absolute Neuts (auto) 15.3 10^3/ul (1.5-7.7) H 12/26/18 05:45 Absolute Lymphs (auto) 0.7 10^3/ul (1.0-4.8) L 12/26/18 05:45 Absolute Monos (auto) 0.7 10^3/ul (0-0.8) 12/26/18 05:45 Absolute Eos (auto) 0.0 10^3/ul (0-0.6) 12/26/18 05:45 Absolute Basos (auto) 0.0 10^3/ul (0-0.2) 12/26/18 05:45 Absolute Nucleated RBC 0.0 10^3/ul 12/26/18 05:45 Immature Gran % 9.0 % (0-9) 12/26/18 05:45 Neutrophils % 84.0 % 12/26/18 05:45 Band Neutrophils % 2.0 % (0-8) 12/26/18 05:45 Lymphocytes % 2.0 % 12/26/18 05:45 Monocytes % 3.0 % 12/26/18 05:45 Eosinophils % 1.0 % 12/25/18 12:00 Metamyelocytes % 2.0 % (0-2) 12/26/18 05:45 Myelocytes % 5.0 % (0-1) H 12/26/18 05:45 Nucleated RBC % 0.1 12/26/18 05:45 Normal RBC Morphology Normal (Normal) 12/26/18 05:45 Sodium 136 mmol/L (135-145) 12/26/18 05:45 Potassium 4.0 mmol/L (3.5-5.0) 12/26/18 05:45 Chloride 100 mmol/L (101-111) L 12/26/18 05:45 Carbon Dioxide 29 mmol/L (22-32) 12/26/18 05:45 Anion Gap 7 mmol/L (2-11) 12/26/18 05:45 BUN 22 mg/dL (6-24) 12/26/18 05:45 Creatinine 0.49 mg/dL (0.67-1.17) L 12/26/18 05:45 Est GFR ( Amer) 207.3 (>60) 12/26/18 05:45 Est GFR (Non-Af Amer) 171.4 (>60) 12/26/18 05:45 BUN/Creatinine Ratio 44.9 (8-20) H 12/26/18 05:45 Glucose 105 mg/dL (70-100) H 12/26/18 05:45 Lactic Acid 1.0 mmol/L (0.5-2.0) 12/25/18 12:01 Calcium 9.2 mg/dL (8.6-10.3) 12/26/18 05:45 Total Bilirubin 0.30 mg/dL (0.2-1.0) 12/25/18 12:01 AST 15 U/L (13-39) 12/25/18 12:01 ALT 52 U/L (7-52) 12/25/18 12:01 Alkaline Phosphatase 63 U/L (34-104) 12/25/18 12:01 Troponin I 0.01 ng/mL (<0.04) 12/25/18 12:01 B-Natriuretic Peptide 44 pg/mL (<=100) 12/25/18 12:00 Total Protein 5.8 g/dL (6.4-8.9) L 12/25/18 12:01 Albumin 2.9 g/dL (3.2-5.2) L 12/25/18 12:01 Globulin 2.9 g/dL (2-4) 12/25/18 12:01 Albumin/Globulin Ratio 1.0 (1-3) 12/25/18 12:01 Urine Color Yellow 12/26/18 06:18 Urine Appearance Cloudy 12/26/18 06:18 Urine pH 7.0 (5-9) 12/26/18 06:18 Ur Specific [place] 1.020 (1.010-1.030) 12/26/18 06:18 Urine Protein Negative (Negative) 12/26/18 06:18 Urine Ketones Negative (Negative) 12/26/18 06:18 Urine Blood 3+ (Negative) A 12/26/18 06:18 Urine Nitrate Negative (Negative) 12/26/18 06:18 Urine Bilirubin Negative (Negative) 12/26/18 06:18 Urine Urobilinogen Negative (Negative) 12/26/18 06:18 Ur Leukocyte Esterase Negative (Negative) 12/26/18 06:18 Urine WBC (Auto) Trace(0-5/hpf) (Absent) 12/26/18 06:18 Urine RBC (Auto) 3+(>10/hpf) (Absent) A 12/26/18 06:18 Amorphous Crystals Present (Absent) A 12/26/18 06:18 Urine Bacteria Absent (Absent) 12/26/18 06:18 Urine Glucose Negative (Negative) 12/26/18 06:18 - Objective Active Medications: Acetaminophen (Tylenol Tab*) 650 mg PO Q4H PRN PRN Reason: FEVER/PAIN Albuterol/Ipratropium (Duoneb (Albuterol 2.5 Mg/Ipratropium 0.5 Mg)) 1 neb INH [id number] AWAKE PRN PRN Reason: sob/wheexing Last Admin: 12/26/18 13:18 Dose: 1 neb Dexamethasone (Decadron Tab*) 4 mg PO BID [facility] Last Admin: 12/26/18 09:12 Dose: 4 mg Piperacillin Sod/Tazobactam (Sod 3.375 gm/ Sodium Chloride) 100 mls @ 25 mls/ hr IVPB Q8H [facility] Last Admin: 12/26/18 13:32 Dose: 25 mls/hr Levetiracetam (Keppra Tab*) 500 mg PO BID [facility] Last Admin: 12/26/18 09:12 Dose: 500 mg Pharmacy Consult (Zosyn Per Pharmacy*) 1 note FOLLOW UP .ZOSYN PER PHARMACY [facility] Vital Signs: Vital Signs: Temp Pulse Resp BP Pulse Ox 97.7 F 105 16 115/61 92 12/26/18 15:15 12/26/18 15:15 12/26/18 15:15 12/26/18 15:15 12/26/18 15:15 Patient Weight: Weight 55.474 kg Intake and Output: Intake & Output 12/24/18 12/25/18 12/26/18 12/27/18 06:59 06:59 06:59 06:59 Intake Total 310 2160 Output Total 300 Balance 10 2160 Weight 55.474 kg Intake: IV Fluids 210 ABX - ZOSYN 50 IVPB 100 ABX - ZOSYN 100 Oral 0 2160 Output: Urine 300 Other: Date of Last Bowel 12/26/18 Movement # Bowel Movements 0 1 # Voids 1 ADLs: Meal Record Start: 12/25/18 20: 22 Freq: DAILY@0900,1400,1800 Status: Active Protocol: Created 12/25/18 20:22 System (Rec: 12/25/18 20:22 System [id number]) Document 12/26/18 09:00 [id number] (Rec: 12/26/18 09:21 [id number] MED-C11) Document 12/26/18 14:00 [id number] (Rec: 12/26/18 15:33 [id number] MED-C11) Intake and Output Start: 12/25/18 11: 32 Freq: Status: Active Protocol: Created 12/25/18 11:32 System (Rec: 12/25/18 11:32 System [id number]) Intake and Output Start: 12/25/18 20: 22 Freq: DAILY@0600,1400,2200 Status: Active Protocol: Created 12/25/18 20:22 System (Rec: 12/25/18 20:22 System MED-C25) Document 12/25/18 22:00 [id number] (Rec: 12/25/18 22:55 [id number] MED-C11) Document 12/26/18 06:00 [id number] (Rec: 12/26/18 06:06 [id number] MED-C11) Document 12/26/18 14:00 [id number] (Rec: 12/26/18 15:35 [id number] MED-C11) Eyes: No Scleral Icterus Ears/Nose/Mouth/Throat: Mucous Membranes Moist Neck: Trachea Midline Cardiovascular: RRR - Normal S1 and S2 Respiratory: Symmetrical Chest Expansion and Respiratory Effort Extremities: No Edema Neurological: Alert and Oriented x 3, NL Muscle Strength and Tone - Assessment Assessment: 63yo male with L lung cancer with metastasis to brain and kidney presents with SOB eligible for hospice - Plan Consult Plan (MU): Hospice Plan: Long discussion with pt about care after the hospital. 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 Was diagnosed with cancer in [place] and decided to return home. He has a completed MOLST on the chart. His wish is to at home with hospice. He will be living with his dad who is 95 and still drives also has multiple family members in close proximity. He did see Dr Belle at the [place] but would prefer to follow with Dr Desai. Hospice brochure given and information/benefits explained. Will try to arrange same day sign up at discharge. Pt says he has been thinking about dying a lot these past few years since he has no , no children and no pets. Pt is eligible with the diagnosis of metastatic lung cancer. KPS 50%, PPS 50% - Time On Unit Date of Evaluation: 12/26/18 Hospice Consult Time in: 04:00 Hospice Consult Time Out: 05:00 Hospice Consult Time Total: 60 > 50% of Time Spend In Counseling or Coordinating Care: Yes
--- NOTE | 2018-12-26 22:00 | CONS ---
CC: Dr. Belle at [facility]; Dr. Theodore Desai; Hospice * MEDICAL ONCOLOGY CONSULTATION NOTE: DATE OF CONSULT: 12/26/18 REASON FOR CONSULTATION: Metastatic non-small cell lung cancer. HISTORY OF PRESENT ILLNESS: Mr. Chairez is a 63-year-old male who reports that in July 2018, he developed tingling in fingers of his left hand. He did not think too much of that. He was in [place] at that time and subsequently developed hematuria. [facility] [place] [place] A testing was arranged for August 2018. He underwent a CT urogram on . This revealed multiple bilateral pulmonary masses. In addition, lesions were seen in the liver and spleen, which were certainly consistent with hemangiomas or cysts, but could not rule out metastatic disease. Heterogeneous mass was seen in the parenchyma of the mid to lower pole of the right kidney concerning for neoplasms, unclear if this was a primary renal cell carcinoma versus metastatic disease. This was discussed with the patient today. He reports he was never told of the pulmonary masses at that time, only that he was told of the renal mass. The patient reports that he did not have any neurologic symptoms over that period of time, but on further questioning, the patient reports that he has clumsiness in his fingers, especially on the left and diplopia. A CT scan of the brain was obtained through [facility] on . This revealed nodular and ring-like enhancement in bilateral temporal lobes. This included anterior left temporal lobe with complex solid and cystic lesions, the left superomedial temporal and left posterior frontal lobe with masses. There was extensive vasogenic edema. The patient at that time was placed on steroids with Decadron at 4 mg b.i.d. and also placed on Keppra for seizure prevention 500 mg b.i.d. He was asked to have further workup to include a biopsy of the kidney and this was arranged for approximately 1 month later. On further questioning of his doctors in [place], he explains them he preferred to be back home near family in [place] and they advised him to return home as soon as possible. He subsequently developed clumsiness and tingling in his right hand as well as the left. He reports really bad diplopia when being driven back to [facility]. The patient subsequently underwent a biopsy of the kidneys through the [facility]. Although, he was told that this showed renal cell carcinoma, pathology actually revealed a TTF-1 positive tumor, which was also negative for uroplakin, also positive for napsin A. 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 The patient was unaware of this finding until this was discussed with him today. He has noted increasing fluid in his legs for which he has been placed on Lasix. He has not fallen but his stability is off. He is more short of breath. He has increasing coughing. He is not on oxygen at home. He was hospitalized here from 12/19/18 to 12/21/18 with what was felt to be a community -acquired pneumonia along with COPD exacerbation. He was treated with ceftriaxone and azithromycin with some improvement. Urine antigens were negative. Sputum culture was no growth. He was given DuoNebs for his COPD exacerbation. At that time, he had conversations with palliative care team and reported that he would not want any therapy for his "renal cell cancer." He returns at this time with similar symptoms to last week. He reports that he has more cough and shortness of breath. He has had a fever. He is becoming progressively weak and unsteady on his feet and having difficulty walking. He was originally scheduled to see Dr. Stahl in the office today, but presented to the emergency room in the interim. He was found to have a fever to 101 and a white count of 17,000. CT scan of the chest was performed last evening. This reveals a very large mass in the left upper lobe measuring approximately 8 cm with a cavitary center. In addition, multiple bilateral pulmonary nodules are seen up to approximately 2 cm. A right adrenal mass is also noted. The report of the chest CT actually is that of a head CT and mentions lesions in the brain, especially in the temporal lobes measuring up to 2.2 cm with a mild amount of vasogenic edema. I am unable to locate images of the brain at the present time. PAST MEDICAL HISTORY: The patient has been a big time smoker, 1 pack per day for 45 years and still smoking. Status post herniorrhaphy. No other surgeries or hospitalizations. MEDICATIONS ON ADMISSION: 1. Keppra 500 mg b.i.d. 2. Lasix 20 mg daily. 3. Decadron 4 mg b.i.d. 4. Levaquin 500 mg daily. ALLERGIES: None. SOCIAL HISTORY: The patient was living alone in [place]. He has come back to be with family and he is currently living with his 95-year-old father in [place] and has siblings nearby. Alcohol, very heavy drinking until quitting in 1994. Cigarettes, 1 per day for 45 years and still smoking. Daily marijuana. 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 He reports that he has had a great life and was ready to 5 years ago. He has nothing further to live for, although he is not actively suicidal. FAMILY HISTORY: Mother in her late 80s with cardiac disease. Father is alive at age 95. No history of cancer in the family. REVIEW OF SYSTEMS: No seizure activity. No headaches. No focal weakness, although he does have significant clumsiness and problems with balance. Respiratory: As discussed above. No nausea, vomiting, diarrhea, or abdominal pain. Episodes of gross hematuria since July. No major arthritic or bony complaints. Review of systems is otherwise as discussed above. PHYSICAL EXAM: A 63-year-old male, in no acute distress. Vital Signs: Blood pressure 121/73, pulse 93, afebrile. HEENT: No scleral icterus. Moist mucous membranes. No palpable cervical, supraclavicular, or axillary adenopathy. Lungs: Decreased breath sounds, especially on the left. Occasional rhonchi. Heart: Regular rate and rhythm without murmurs, rubs, or gallops. Abdomen: Soft, nontender without masses or organomegaly. Extremities: 2+ pitting edema bilaterally. Neurologic Exam: The patient is alert and oriented x3. Cranial nerves III through XII are intact. Strength is at least 4/5 throughout. IMPRESSION: Metastatic non-small cell lung cancer, adenocarcinoma, napsin and TTF-1 positive on biopsy of the kidney a couple of weeks ago. Associated with this, he has metastatic carcinoma to the brain, to the kidney, to the adrenal gland, and throughout both lung singh. He has a large cavitary lung cancer. He currently has symptoms consistent with pneumonia. This could well be a postobstructive pneumonia. The patient does wish antibiotics and medications to help him symptomatically. However, he is very clear that he wants to be DNR/DNI and that he does not want to be intubated or kept alive for long period of time. He reports that if he dies in his sleep or dies during the hospitalization that would be perfectly fine. It is discussed with him that if his current respiratory status and infection improves given his other sites of metastatic disease, that he could live for another 1 to 3 months. He does wish if he improves to go home. This would be with his father who is unable to provide care at age 95. We discussed hospice and suggested a palliative care/hospice consult. If he were to go home on hospice as he has no other physicians in the area, our office could certainly serve as the contact for hospice to change medications as needed. It is explained to him that if he has increasing neurologic symptoms that his Decadron may need to be increased to improve neurologic symptoms and prevent worsening weakness, seizures, or headaches. [id number]/[place] #: [id number] SUSAN
[2018-12-27] MEDS: Albuterol/Ipratropium NEB.SOL* Albuterol 2.5 MG/Ipratropium 0.5 MG 3 ML INH PRN ×4 (03:47→19:36)
[2018-12-27] MEDS: ZOSYN 3.375 GM Q8H per EXTENDED INFUSION IVPB SCH ×6 (05:40→22:16)
[2018-12-27] MEDS: levETIRAcetam TAB* 500 MG PO SCH ×2 (08:29→20:42)
[2018-12-27] MEDS: Dexamethasone TAB* 4 MG PO SCH ×2 (08:30→20:43)
[2018-12-27] MEDS: Morphine ORAL CONCENTRATE* 5 MG/0.25 ML ORAL.SYRIN SL PRN ×2 (15:21→20:43)
--- NOTE | 2018-12-27 17:37 | PN ---
Subjective Date of Service: 12/27/18 Interval History: HOSPITALIST PROGRESS NOTE Patient seen and examined at bedside. Care reviewed and d/w Kelsey Vivas RN. He offers no new complaints today. Dyspnea and cough still present. Family History: Unchanged from Admission Social History: Unchanged from Admission Past Medical History: Unchanged from Admission Objective Active Medications: Acetaminophen (Tylenol Tab*) 650 mg PO Q4H PRN PRN Reason: FEVER/PAIN Albuterol/Ipratropium (Duoneb (Albuterol 2.5 Mg/Ipratropium 0.5 Mg)) 1 neb INH [id number] AWAKE PRN PRN Reason: sob/wheexing Last Admin: 12/27/18 13:17 Dose: 1 neb Dexamethasone (Decadron Tab*) 4 mg PO BID [facility] Last Admin: 12/27/18 08:30 Dose: 4 mg Piperacillin Sod/Tazobactam (Sod 3.375 gm/ Sodium Chloride) 100 mls @ 25 mls/ hr IVPB Q8H [facility] Last Admin: 12/27/18 15:22 Dose: 25 mls/hr Levetiracetam (Keppra Tab*) 500 mg PO BID [facility] Last Admin: 12/27/18 08:29 Dose: 500 mg Morphine Sulfate (Morphine Oral Concentrate*) 5 mg SL Q2H PRN PRN Reason: Pain/Tachypnea RR>24 Last Admin: 12/27/18 15:21 Dose: 5 mg Pharmacy Consult (Zosyn Per Pharmacy*) 1 note FOLLOW UP .ZOSYN PER PHARMACY [facility] Vital Signs - 8 hr 12/27/18 12/27/18 12/27/18 13:18 15:10 15:21 Temperature 98.5 F Pulse Rate 78 88 Respiratory 18 16 16 Rate Blood Pressure 146/67 (mmHg) O2 Sat by Pulse 94 93 Oximetry 12/27/18 16:17 Temperature 98.0 F Pulse Rate 83 Respiratory 16 Rate Blood Pressure 133/71 (mmHg) O2 Sat by Pulse 94 Oximetry Oxygen Devices in Use Now: None Appearance: Thin gentleman sitting up in bed in NAD. Eyes: No Scleral Icterus Ears/Nose/Mouth/Throat: Mucous Membranes Moist Neck: Trachea Midline Respiratory: Symmetrical Chest Expansion and Respiratory Effort, - - BS+ bilaterally with scattered wheezes Cardiovascular: RRR - Normal S1 and S2 Neurological: Alert and Oriented x 3, NL Muscle Strength and Tone Result Diagrams: 12/26/18 05:45 12/26/18 05:45 Microbiology and Other Data: Microbiology 12/25/18 12:00 Aerobic Blood Culture - Preliminary Blood Venous No Growth Day 1 Anaerobic Blood Culture - Preliminary No Growth Day 1 12/26/18 06:18 Legionella Urinary Antigen - Final Urine Negative Legionella Antigen Streptococcus pneumoniae Ag Screen - Final Negative S. pneumo Antigen Assess/Plan/Problems-Billing Assessment: Mr Chairez is a 63yo M with PMH of metastatic lung adenocarcinoma, recent admission for pneumonia, who presented to ED with c/o weakness and worsening shortness of breath. - Patient Problems (1) Cavitary lesion of lung Comment: - Patient developed hematuria while in [place], and w/u revealed bilateral pulmonary masses, right kidney masses; CT brain showed bilateral temporal lesions; renal biopsy done showed findings compatible with lung adenocarcinoma. - CT chest shows large YAIR cavitary lesion. - Sputum culture grew Achromobacter sensitive to Zosyn. - ID consult appreciated. - He likely has post obstructive pneumonia associated with his Lung CA. (2) Metastatic adenocarcinoma to lung Comment: - See above. - Patient is not interested in any further w/u or aggressive therapy. - Will add Morphine concentrate for symptomatic relief. - Plan to d/c home with Hospice 12/29/18. (3) DVT prophylaxis Comment: - SCDs. (4) DNR (do not resuscitate) Status and Disposition: Inpatient.
[2018-12-28] MEDS: Morphine ORAL CONCENTRATE* 5 MG/0.25 ML ORAL.SYRIN SL PRN ×3 (03:25→23:05)
[2018-12-28] MEDS: ZOSYN 3.375 GM Q8H per EXTENDED INFUSION IVPB SCH ×6 (06:17→22:07)
[2018-12-28] MEDS: Albuterol/Ipratropium NEB.SOL* Albuterol 2.5 MG/Ipratropium 0.5 MG 3 ML INH PRN ×2 (08:07→20:25)
[2018-12-28] MEDS: levETIRAcetam TAB* 500 MG PO SCH ×2 (08:17→20:47)
[2018-12-28] MEDS: Dexamethasone TAB* 4 MG PO SCH ×2 (08:17→20:47)
[2018-12-28] MEDS ORDERED: LORazepam TAB(*) 0.5 MG PO PRN (13:00)
--- NOTE | 2018-12-28 13:55 | PN ---
Subjective Date of Service: 12/28/18 Interval History: Pt feels anxious before going home with hospice tomorrow. All the questions were answered and pt was reassured. Feels that nebulizers help him the most with SOB and wheezing Family History: Unchanged from Admission Social History: Unchanged from Admission Past Medical History: Unchanged from Admission Objective Active Medications: Acetaminophen (Tylenol Tab*) 650 mg PO Q4H PRN PRN Reason: FEVER/PAIN Albuterol/Ipratropium (Duoneb (Albuterol 2.5 Mg/Ipratropium 0.5 Mg)) 1 neb INH [id number] AWAKE PRN PRN Reason: sob/wheexing Last Admin: 12/28/18 08:07 Dose: 1 neb Dexamethasone (Decadron Tab*) 4 mg PO BID [facility] Last Admin: 12/28/18 08:17 Dose: 4 mg Piperacillin Sod/Tazobactam (Sod 3.375 gm/ Sodium Chloride) 100 mls @ 25 mls/ hr IVPB Q8H [facility] Last Admin: 12/28/18 12:00 Dose: 25 mls/hr Levetiracetam (Keppra Tab*) 500 mg PO BID [facility] Last Admin: 12/28/18 08:17 Dose: 500 mg Morphine Sulfate (Morphine Oral Concentrate*) 5 mg SL Q2H PRN PRN Reason: Pain/Tachypnea RR>24 Last Admin: 12/28/18 13:40 Dose: 5 mg Pharmacy Consult (Zosyn Per Pharmacy*) 1 note FOLLOW UP .ZOSYN PER PHARMACY [facility] Vital Signs - 8 hr 12/28/18 12/28/18 12/28/18 08:00 08:09 09:07 Pulse Rate 88 Respiratory 20 20 Rate Blood Pressure 148/89 (mmHg) O2 Sat by Pulse 95 Oximetry 12/28/18 13:40 Pulse Rate Respiratory 22 Rate Blood Pressure (mmHg) O2 Sat by Pulse Oximetry Oxygen Devices in Use Now: None Appearance: 63 yo M in [place], aAOx3 Eyes: No Scleral Icterus, PERRLA Ears/Nose/Mouth/Throat: NL Teeth, Lips, Gums, Mucous Membranes Moist Neck: NL Appearance and Movements; NL JVP, Trachea Midline Respiratory: - - mild diffuse wheezes b/l Cardiovascular: NL Sounds; No Murmurs; No JVD Abdominal: NL Sounds; No Tenderness; No Distention Extremities: No Edema, No Clubbing, Cyanosis Skin: No Rash or Ulcers, No Nodules or Sclerosis Neurological: Alert and Oriented x 3, NL Muscle Strength and Tone Result Diagrams: 12/26/18 05:45 12/26/18 05:45 Microbiology and Other Data: Microbiology 12/25/18 12:00 Aerobic Blood Culture - Preliminary Blood Venous No Growth Day 1 Anaerobic Blood Culture - Preliminary No Growth Day 1 12/26/18 06:18 Legionella Urinary Antigen - Final Urine Negative Legionella Antigen Streptococcus pneumoniae Ag Screen - Final Negative S. pneumo Antigen Assess/Plan/Problems-Billing Assessment: Mr Chairez is a 63yo M with PMH of metastatic lung adenocarcinoma, recent admission for pneumonia, who presented to ED with c/o weakness and worsening shortness of breath. - Patient Problems (1) Cavitary lesion of lung Comment: - Patient developed hematuria while in [place], and w/u revealed bilateral pulmonary masses, right kidney masses; CT brain showed bilateral temporal lesions; renal biopsy done showed findings compatible with lung adenocarcinoma. - CT chest shows large YAIR cavitary lesion. - Sputum culture grew Achromobacter sensitive to Zosyn. - ID consult appreciated. - He likely has post obstructive pneumonia associated with his Lung CA. (2) Metastatic adenocarcinoma to lung Comment: - See above. - Patient is not interested in any further w/u or aggressive therapy. - cont Morphine concentrate for symptomatic relief. - Plan to d/c home with Hospice 12/29/18. (3) DVT prophylaxis Comment: - SCDs. Status and Disposition: Inpatient.
[2018-12-29] MEDS: ZOSYN 3.375 GM Q8H per EXTENDED INFUSION IVPB SCH ×2 (06:29)
[2018-12-29] MEDS: Albuterol/Ipratropium NEB.SOL* Albuterol 2.5 MG/Ipratropium 0.5 MG 3 ML INH PRN (06:39)
[2018-12-29 07:05] VITALS: BP 137/76
[2018-12-29] MEDS: levETIRAcetam TAB* 500 MG PO SCH (08:05)
[2018-12-29] MEDS: Dexamethasone TAB* 4 MG PO SCH (08:05)
--- NOTE | 2018-12-29 10:50 | DS ---
Amended report to correct patient account number. CC: Dr. Belle, [facility]; Dr. Desai; Dr. Broderick; [facility], Dr. Juli Quinteros* DISCHARGE SUMMARY: DATE OF ADMISSION: 12/25/18 DATE OF DISCHARGE: 12/29/18, to home to follow up with hospice. 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 MEDICATIONS AT DISCHARGE: Include: 1. DuoNeb every 4 hours p.r.n. 2. Decadron 4 mg b.i.d. 3. Keppra 500 mg b.i.d. 4. Morphine oral concentrate 5 mg every 12 hours p.r.n. for shortness of breath , pain. 5. Bactrim DS 1 tablet b.i.d. for a total of 7 days, then stop. Please note that the patient's Lasix was discontinued at this hospital stay due to no more peripheral edema noted and patient not requiring it during this hospital stay. CONSULTATIONS DURING THE HOSPITAL STAY: Included Dr. Desai from oncology and Dr. Broderick of infectious diseases. DISPOSITION AT DISCHARGE: Patient is going to go home with sign on to hospice today at 10 a.m. at home. CONDITION ON DISCHARGE: Stable. LABORATORY DATA AND STUDIES PERFORMED DURING THE HOSPITAL STAY: Included: On , white blood cell count 16.7, hemoglobin 10.9, hematocrit of 32, and platelets of 126. Sodium was 136, potassium 4.0, chloride 100, carbon dioxide 29, BUN 22, creatinine 0.49. Microbiology studies: Please note taken prior to patient's admission on grew Achromobacter, which was sensitive to Bactrim, Zosyn, and meropenem. Please note that the patient had a brain CT obtained on 12/25/18 that was accidentally marked in the computer as a chest CT, and the brain CT findings showed, impression: "Cyst-like structure located in the posterior aspect of the right temporal lobe associated with vasogenic edema. Recommended MRI study with contrast in the setting of large cavitary lesion in the left upper lung with multiple nodules scattered throughout the chest. This may not represent metastatic tumor. Another lesion is also noted in the left frontoparietal lobe and a subtle area of decreased density in the subcortical and periventricular white matter with a small nodule located in the subcortical white matter. This may represent another lesion." Chest x-ray obtained on 12/25/18: Impression: "Large cavitary lesion of the left upper lobe consistent with a neoplastic or infectious process. Multiple pulmonary nodules suspicious for metastatic disease, unchanged. Interval resolution of the previously noted left lung infiltrate." There was comparison made with the prior study from 12/19/18. HOSPITAL COURSE: Jorje Chairez is a 63-year-old male who when he presented to go to hospital on 12/25/18 he stated that he just moved recently from [place] and he has a history of kidney cancer. He came in with shortness of breath. He was noted to have wheezing on evaluation and mild COPD exacerbation. He also was noted to have postobstructive pneumonia with his recent microbiology testing positive for sputum for Achromobacter. Patient was treated with Zosyn and an infectious disease consult was requested. Due to also patient's history of malignancy, Dr. Desai saw the patient in consultation. It was noted from review of patient's medical records from [place], patient in fact was diagnosed with metastatic adenocarcinoma of the lungs with mets to the kidneys, adrenal glands, and brain. Patient noted that he would not want any further treatment for his cancer and hospice was arranged to meet him at home today, which is 02/09 at 10 a.m. During his hospital stay, the patient was treated with Zosyn and morphine on an as-needed basis. He required nebulizers throughout this hospital stay and nebulizer machine and DuoNeb treatments were set at home. He was on Keppra and Decadron for his brain metastasis. He did not appear to have any neurological findings during this hospital stay, but he had history of diplopia in the past. Today, he is going to be discharged home with sign in into hospice as mentioned. He has several family members living within 300 yards of him as he stated and he feels that he is going to have plenty of help going forward. PHYSICAL EXAMINATION AT TIME OF DISCHARGE: Blood pressure 137/76, heart rate of 69 and regular, respiratory rate 22, oxygen saturation 99% on room air, and temperature 97.2. General: Patient is a pleasant 63-year-old male who is in no acute distress. Alert, awake, and oriented x3. HEENT: Head: Atraumatic, normocephalic. Eyes: Pupils are equal and reactive to light and accommodation. Oropharynx clear. Mucosa moist. Neck: Supple. No JVD. No bruits bilaterally. Cardiovascular: Regular rate and rhythm. No murmur. Respiratory: Diffuse mild wheezes in bilateral mid to lower lungs. Abdomen: Soft, nontender. Bowel sounds present in all 4 quadrants. Extremities: There is no edema. Pulses are +2 bilaterally. No clubbing or cyanosis. On neuro evaluation, grossly nonfocal. Cranial nerves II through XII grossly intact. Motor strength 5/5 bilaterally and speech is clear. CONDITION AT DISCHARGE: Stable. DISPOSITION: Discharged to home with hospice. Please note that this is a short summary of the patient's hospital stay. Please refer to further medical records for details. TIME SPENT: Approximately 40 minutes were spent on patient's discharge. [id number]/[facility] #: [id number] MTDD
[2018-12-31 16:40] LABS: Coccidiodes Complement Fix Negative (Negative); Coccidioides IgG Antibody Negative (Negative); Coccidioides IgM Antibody Negative (Negative)
== END 2018-12-29 09:00 | disposition home or self-care (01) | DRG 139 ==
LOC: ED 11:03 → MED 17:44
PROVIDERS: ADMIT Hospitalist; ATTEND Internal Medicine
DX: J18.9 Pneumonia, unspecified organism (principal); G93.6 Cerebral edema; R64 Cachexia; Z68.1 Body mass index [BMI] 19.9 or less, adult; C64.9 Malignant neoplasm of unspecified kidney, except renal pelvis; C79.31 Secondary malignant neoplasm of brain; J44.1 Chronic obstructive pulmonary disease with (acute) exacerbation; C34.92 Malignant neoplasm of unspecified part of left bronchus or lung; C34.91 Malignant neoplasm of unspecified part of right bronchus or lung; C79.00 Secondary malignant neoplasm of unspecified kidney and renal pelvis; C79.70 Secondary malignant neoplasm of unspecified adrenal gland; Z66 Do not resuscitate; R09.02 Hypoxemia; B96.89 Other specified bacterial agents as the cause of diseases classified elsewhere; F17.210 Nicotine dependence, cigarettes, uncomplicated; Z87.01 Personal history of pneumonia (recurrent); Z80.9 Family history of malignant neoplasm, unspecified; Z56.0 Unemployment, unspecified; Z82.49 Family history of ischemic heart disease and other diseases of the circulatory system
CPT/HCPCS: 36415; 71045; 71250; 80048; 80053; 81003; 81015; 83605; 83880; 84484; 85025; 86635; 87040; 87086; 87899; 93005; 94640; 99285; A9270-GY; J0692; J0744; J1644; J2543; J2930; J8540